=== PATIENT | female | born 1950 | race Caucasian/White ===

== ENCOUNTER 2016-09-24 04:52 | Inpatient (IN) | payer MEDICARE ==
[2016-09-19 10:50] LABS: HEMOGLOBIN 11.8 g/dL (12.0-16.0)
[2016-09-19 10:51] LABS: HEMATOCRIT 37.3 % (36.0-48.0)
[2016-09-19 11:09] LABS: CALCIUM, SERUM 9.3 MG/DL (8.5-10.4); CHLORIDE, SERUM 105 MMOL/L (96-112); CO2 (CARBON DIOXIDE) 31 MMOL/L (24-34); CREATININE 0.83 MG/DL (0.55-1.02); GFR AFRICAN AMERICAN 84 ML/MIN (>=60); GFR NON AFRICAN AMERICAN 72 ML/MIN (>=60); POTASSIUM, SERUM 4.2 MMOL/L (3.5-5.3); SODIUM, SERUM 135 MMOL/L (135-148)
[2016-09-19 11:14] LABS: BUN (BLOOD UREA NITROGEN) 17 MG/DL (6-23); GLUCOSE, SERUM 216 MG/DL (60-99)
--- NOTE | ~2016-09-24 | OP ---
Record Of Operation [facility] [address] [place]. [address] NAME: AKIRA EAGLE : 46 STATUS : DIS IN PAT#: [id number] AGE: 66 ADM/REG DATE : 09/24/16 MR#: [id number] REPORT SERV DATE: 09/28/16 DICTATED BY: MURALI PATRICIA II DATE: 09/28/16 REPORT STATUS : Draft TRANSCRIBED BY: CLINT DATE: 09/28/16 DATE OF PROCEDURE: 09/24/2016 PREOPERATIVE DIAGNOSES: 1. Neck pain with history of multilevel cervical fusion. 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 4. 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 POSTOPERATIVE DIAGNOSES: 1. Neck pain with history of multilevel cervical fusion. 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 4. 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 PROCEDURES: 1. Posterolateral arthrodesis, C2-3, C3-4, C7-T1, T1-T2. 2. Posterior segmental instrumentation, C2-3, C3-4, C6-T2. 3. Removal and re-instrumentation C3-C6. 4. Use of local autograft, allograft substitute, and bone morphogenic protein. 5. Use of stereotactic spinal imaging. PREOPERATIVE HISTORY: This is a very friendly 66-year-old female, who is extremely well known to me through the past. She has done very well with surgery in the past. Unfortunately, she continues to develop adjacent segment degeneration. She has had increasing amounts of pain. She also has some degree of sagittal deformity, but she is not enough in my opinion to warrant an osteotomy. We discussed the risks and benefits of revision surgery not only at the area which appeared to have a nonunion, but also the adjacent levels of degeneration. She has done well with surgery before and I suspected that the odds are good that she would have improvement with surgery. She and I discussed the merits of the surgery. We also discussed of course the risks. I also discussed this with her , Jaiden. DESCRIPTION OF PROCEDURE: After informed consent was obtained, the patient was brought to the operating room at her request and general anesthesia achieved. She was placed in a Denis-Wells tongs followed by placement in the prone position. The posterior cervical and upper thoracic regions were prepped and draped in a sterile fashion. The incision was now performed from approximately C2-T2. The subperiosteal exposure was now completed at C2-C3. We also then performed dissection along the previous posterior hardware from C3-C6. We also dissected down to T2 and the deep retractors were placed. Next, the intraoperative CT scan was completed and stereotactic guidance was used throughout the case. At this point, the loose hardware was removed at C3-4. The screws were clearly loose. The other screws were then removed and then reinserted with slightly longer screws. We then used stereotactic guidance to place the pars screws into C2. The instrumentation was well Record Of Operation [address] [address] NAME: AKIRA EAGLE : 46 STATUS : DIS IN PAT#: [id number] AGE: 66 ADM/REG DATE : 09/24/16 MR#: [id number] REPORT SERV DATE: 09/28/16 DICTATED BY: MURALI PATRICIA II DATE: 09/28/16 REPORT STATUS : Draft TRANSCRIBED BY: MODL DATE: 09/28/16 applied. We then placed pedicle screws into T1 and T2. At this point, the repeat CT scan confirmed acceptable placement of the implants. The facet capsules had now been removed at C2-3 and the nonunion material removed at C3-4. The C4-5 and C5-6 levels were very well fused at this point. We then decorticated the posterior elements of C2, C3, and C4 as well as the posterior elements of C7, T1, and T2. The local autograft, allograft substitute, and bone morphogenic protein were placed along the decorticated surfaces. The rods were then well applied and final tightening performed. I was pleased overall with the biomechanical construct. The deep drain was placed followed by standard closure, and the patient was then extubated and transferred to PACU in stable condition. JASE/CLINT Murali Patricia II, M.D. / [id number] CC: Chela Vásquez II, TYE
--- NOTE | ~2016-09-24 | DS ---
Discharge Summary [facility] [address] [place]. [address] NAME: AKIRA EAGLE : 46 STATUS : DIS IN PAT#: [id number] AGE: 66 ADM/REG DATE : 09/24/16 MR#: [id number] REPORT SERV DATE: 10/08/16 DICTATED BY: MURALI PATRICIA II DATE: 10/07/16 REPORT STATUS : Draft TRANSCRIBED BY: CLINT DATE: 10/07/16 Data Collection from hospitalization DISCHARGE DIAGNOSES: 1. Neck pain with history of multilevel cervical fusion. 2. C3-C4 nonunion. 3. C7-T1 adjacent segment degeneration. 4. 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 5. Hypertension. 6. Insulin-dependent diabetes. 7. Anemia. 8. Fibromyalgia. 9. Deafness. 10.Cataracts. 11.Asthma. 12.Irritable bowel syndrome. 13.History of bronchitis. 14.Hiatal hernia. 15.Depression. CONSULTATIONS: None. PROCEDURES PERFORMED: Posterolateral arthrodesis of C2-3, C3-4, C7-T1, and T1-T2; posterior segmental instrumentation of C2-3, C3-4, and C6-T2; removal and reinstrumentation of C3-C6; use of local autograft, allograft substitute, and bone morphogenic protein; and use of stereotactic spinal imaging on 09/24/2016. PATHOLOGY: Bone, soft tissue, and surgical hardware, cervical spine - fragments of bone, skeletal muscle, and fibrocartilage with no significant pathology abnormality, surgical hardware (see gross description). MEDICATIONS: ProAir two puffs via inhaler as needed, Valium 5 mg every six hours as needed, Lanoxin 0.25 mg at bedtime, Lexapro 10 mg at bedtime, flecainide 50 mg every morning, York 5/325 one to two tablets every four hours as needed, Lantus 24 units subcutaneously at bedtime, Singulair 10 mg at bedtime, MS Contin 30 mg every 12 hours, Prilosec 40 mg twice a day, Zofran 4 mg every eight hours, Klor-Con 10 mEq at bedtime, Zantac 300 mg at bedtime, Zocor 20 mg at bedtime, Carafate 1 g three times a day, Maxzide one tablet every morning, Cardizem 180 mg every morning, GI cocktail as instructed, and magnesium at bedtime as instructed. CONDITION AT DISCHARGE: Stable. DISPOSITION: The patient was discharged home on an 1800-calorie diabetic diet with activities as instructed. She would follow up with me on 10/17/2016. HOSPITAL COURSE: This is a 66-year-old female who complained of cervical-related symptoms. The symptoms were located in the neck with radiation into the bilateral shoulders and upper extremities with associated numbness, tingling, and weakness. The patient said that her Discharge Summary [facility] [address] [facility] [address] NAME: AKIRA EAGLE : 46 STATUS : DIS IN PAT#: [id number] AGE: 66 ADM/REG DATE : 09/24/16 MR#: [id number] REPORT SERV DATE: 10/08/16 DICTATED BY: MURALI PATRICIA II DATE: 10/07/16 REPORT STATUS : Draft TRANSCRIBED BY: CLINT DATE: 10/07/16 lumbar symptoms had improved. She has a history of multilevel cervical fusion. 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 Treatment options were discussed and it was elected to proceed with surgical intervention. She was admitted to the hospital at this time for further evaluation and treatment. Upon admission, she was taken to the operating room where she underwent the above-mentioned procedure. She tolerated this well, and there were no complications. On postop day #1, she was stable. She was alert and cooperative. Over the next couple of days, she continued to do well. She complained of the expected postop pain. Blood glucose levels were elevated. She was refusing sliding scale insulin. Her drain remained in place. Discharge planning was performed. On 09/27/2016, she was wanting to go home. Discharge instructions were given. Due to her improved and stable condition, she was discharged home with the above- stated instructions. Information collected by: Sugar Gutierrez I submit the above information as my discharge summary. MUNA/CLINT Murali Patricia II, M.D. / [id number] CC: Chela Vásquez II, TYE
[~2016-09-24 04:52] MED LIST: ACTOS30 PO; ADVAIR100 INH; ADVIL MIGRAI200 MG PO; ASAB PO; BIOTIN PO; BIOTIN10 MG OR; BL CHROMIUM200 MCG PO; CARDCD180 PO; CARDIZEM PO; CARTIA XT120 MG/24 PO; CHROMIUM; COREG6 PO; COZ50 PO; COZAAR100 MG PO; DIGITEK0.125 MG PO; DIOV160 PO; DUONEB INH; DYAZIDE1 CAP PO; EZFE 200200 MG PO; FLECAINIDE50 MG PO; FOSAMAX70 MG PO; GI COCKTAIL; GLUCOPHAGE1000 MG PO; HUMULIN R U SC; JANUVIA100 MG PO; KAPIDEX30 MG PO; KLOR-CON 1010 MEQ PO; L-GLUTAMINE500 MG OR; L40 PO; LAN25 PO; LANTUS SC; LANTUSCART SC; LEXAPRO10 PO; LINZESS 290 M290 MCG PO; LUNESTA2 M1 OR; LUNESTA2 MG PO; MAGNESIUM; MAGONATE PO; MAX25 PO; METHOC750B PO; MIRALAXPKT PO; NEUR100 PO; NEUR300 PO; NORCO1 TA1 PO; OPTIVE1 ML OP; PERCOCET1 TA4 PO; PRILOSEC40 MG PO; PROAIR HFA INH; RANITIDINE300 MG PO; SINGULAIR1 PO; SUCR PO; TOF25 PO; TRADJENTA5 MG PO; VICODINTAB PO; VITAMIN B-625 MG OR; ZANTAC300 MG PO; ZOCOR20 PO; ZOFRAN4 PO; [UNRECOGNIZED DRUG - OTHER]; [UNRECOGNIZED DRUG - OTHER] PO
[2016-09-27] MEDS ORDERED: MSCONTIN PO (09:09)
[2016-09-27] MEDS ORDERED: V5 PO (09:09)
== END 2016-09-27 14:06 | disposition home or self-care (01) | DRG 460 ==
LOC: SDC/OF 04:52 → PACU 12:17 → 3SO 13:19
PROVIDERS: Orthopaedic Surgery
PROC: 0RG4071 Fusion of Cervicothoracic Vertebral Joint with Autologous Tissue Substitute, Posterior Approach, Posterior Column, Open Approach (ICD-10-PCS; 2016-09-24)
PROC: 0RP104Z Removal of Internal Fixation Device from Cervical Vertebral Joint, Open Approach (ICD-10-PCS; 2016-09-24)
PROC: 4A11X4G Monitoring of Peripheral Nervous Electrical Activity, Intraoperative, External Approach (ICD-10-PCS; 2016-09-24)
PROC: 0RG2071 Fusion of 2 or more Cervical Vertebral Joints with Autologous Tissue Substitute, Posterior Approach, Posterior Column, Open Approach (ICD-10-PCS; principal; 2016-09-24 07:00)
PROC: 0RG6071 Fusion of Thoracic Vertebral Joint with Autologous Tissue Substitute, Posterior Approach, Posterior Column, Open Approach (ICD-10-PCS; 2016-09-24 07:00)
DX: M96.0 Pseudarthrosis after fusion or arthrodesis (principal); I10 Essential (primary) hypertension; E11.9 Type 2 diabetes mellitus without complications
CPT/HCPCS: 80048; 82962; 85014; 85018; 87641; 88300; 88304; 88311; 93005; 97161-GP; 97530-GP; A9270-GY; C1713; J0690; J1170; J2250; J2370; J2405; J2710; J3010